=== PATIENT | female | born 1970 | race Caucasian/White ===

== ENCOUNTER 2023-04-14 23:02 | Emergency (ER) | payer MEDICAID, SELFPAY ==
[2023-04-14 23:10] VITALS: BP 184/95; PULSE 97; RESP 18; TEMP 37.2; O2SAT 98; BMI 32.4
--- NOTE | 2023-04-14 23:18 | CT_ITS ---
The [address] [address] Patient Name: HATTIE LANGE MRN: [id number] date: 1970 Sex: F Assigned Patient Location: ER Current Patient Location: .[facility] Accession/Order Number: [id number] Exam Date: 04/14/2023 23:38 Report Date: 04/15/2023 00:16 At the request of: FABIO SHARMA Procedure: CT abdomen pelvis wo con EXAM: CT abdomen pelvis wo con HISTORY: left flank pain, r/o stone COMPARISON: CT abdomen and pelvis examination dated 08/17/2022. TECHNIQUE: Noncontrast axial CT images through the abdomen and pelvis were obtained with coronal and sagittal reformats. Dose reduction techniques were achieved by using automated exposure control and/or adjustment of mA and/or kV according to patient size and/or use of iterative reconstruction technique. FINDINGS: The visualized portions of the lung bases are clear. Abdomen: Please note that the sensitivity for detection of focal lesions or vascular disease is markedly reduced without intravenous contrast. The liver and spleen are unremarkable. There is no intra or extrahepatic biliary duct dilatation. The gallbladder is unremarkable. There is a 1 mm nonobstructive left renal calculus. Otherwise, the pancreas, adrenal glands, kidneys, and bowel loops, including the appendix, are unremarkable. There is no mesenteric or retroperitoneal lymphadenopathy. There is a small fat-containing periumbilical hernia. Pelvis: The bladder and rectum are unremarkable. There is no iliac or inguinal lymphadenopathy. The patient is status post hysterectomy. There is moderate atherosclerotic disease. Bone windows show no aggressive osseous lesions. CT/CT abdomen pelvis wo con IMPRESSION: 1. Nonobstructive left renal calculus with no ureteral calculus seen. 2. Normal appendix. 3. Status post hysterectomy. Electronically authenticated by: Viji ZAPATA Date: 04/15/2023 00:16
--- NOTE | 2023-04-14 23:18 | ED.FEMALEGU1 ---
HPI - Female Genitourinary General Chief complaint: Abdominal Pain Stated complaint: Abdominal Pain Time Seen by Provider: 04/14/23 23:06 History of Present Illness HPI Narrative: 52-year-old female presents for left flank pain. It started a few hours ago when she was at work. There was no injury. She had a little bit of pain earlier in the day but went away. No dysuria or gross hematuria. No fever. It doesn't seem to radiate and she has a history of kidney stones. Related Data Previous Rx's Medication Instructions Recorded cyclobenzaprine 10 mg tablet 10 mg PO TID PRN muscle spasm #20 04/15/23 tabs ibuprofen 800 mg tablet 800 mg PO Q8H PRN pain #20 tabs 04/15/23 Allergies Allergy/AdvReac Type Severity Reaction Status Date / Time No Known Drug Allergies Allergy Verified 04/14/23 23:18 Review of Systems ROS Narrative A ten point review of systems is negative except as noted above. PFSH PFSH Social History Smoking status: Current every day smoker Exam Narrative Exam Narrative: Nurses note and vital signs reviewed and patient is not hypoxic. General: The patient appears uncomfortable and is moving around on the cart. Skin: Warm, dry, no pallor noted. There is no rash noted. Head: Normocephalic, atraumatic Eye: Normal conjunctiva, no drainage Ears, Nose, Mouth, and Throat: oral mucosa is moist. Nares patent. Cardiovascular: Regular Rate and Rhythm Respiratory: Patient is in no distress, no accessory muscle use, lungs are clear to auscultation, no wheezing, rales or rhonchi Back: non-tender, no CVA tenderness bilaterally to percussion. GI: soft and nontender, nondistended Musculoskeletal: The patient has no evidence of calf tenderness, no pitting edema, symmetrical pulses noted bilaterally Neurological: A&O, normal speech Psychiatric: Cooperative Constitutional Vital Signs, click to edit/add: Last Vital Signs Temp 98.9 F 04/14/23 23:10 Pulse 97 H 04/14/23 23:10 Resp 20 04/15/23 00:13 BP 125/66 04/15/23 00:13 Pulse Ox 100 04/15/23 00:13 O2 Del Method Room Air 04/15/23 00:13 Course Vital Signs Vital signs: Vital Signs Temperature 98.9 F 04/14/23 23:10 Pulse Rate 97 H 04/14/23 23:10 Respiratory Rate 18 04/14/23 23:10 Blood Pressure 184/95 H 04/14/23 23:10 Pulse Oximetry 98 04/14/23 23:10 Oxygen Delivery Method Room Air 04/14/23 23:10 Temperature 98.9 F 04/14/23 23:10 Pulse Rate 97 H 04/14/23 23:10 Respiratory Rate 20 04/15/23 00:13 Blood Pressure 125/66 04/15/23 00:13 Pulse Oximetry 100 04/15/23 00:13 Oxygen Delivery Method Room Air 04/15/23 00:13 MDM - Female Genitourinary MDM Narrative Medical decision making narrative: CT scan shows a 1 mm left renal stone without obstruction. There is no hydronephrosis or ureteral stones. I suspect that this may be muscular in nature. Respiratory Was negative as well. Findings were discussed thoroughly with the patient. Differential Diagnosis Differential diagnosis: Likely urinary tract infection and other (muscle strain, kidney stone) Lab Data Attestation: I reviewed the patient's lab results. Labs: Lab Results 04/14/23 Range/Units 23:22 WBC 11.0 (4.0-11.0) 10^3/uL RBC 4.68 (4.20-5.40) 10^6/uL Hgb 13.9 (12.0-16.0) g/dL Hct 41.5 (36.0-48.0) % MCV 88.7 (81.0-99.0) fL MCH 29.7 (26.7-34.0) pg MCHC 33.5 (29.9-35.2) g/dL RDW 12.5 (11.0-15.0) % Plt Count 297 (150-450) 10^3/uL MPV 9.2 L (9.5-13.5) fL Neut % (Auto) 47.4 (43.0-75.0) % Lymph % (Auto) 38.8 (20.5-60.0) % Bradley % (Auto) 10.3 (1.7-12.0) % Eos % (Auto) 2.4 (0.9-7.0) % Baso % (Auto) 0.8 (0.2-2.0) % Neut # (Auto) 5.2 (1.4-6.5) 10^3/uL Lymph # (Auto) 4.3 H (1.2-3.8) 10^3/uL Bradley # (Auto) 1.1 H (0.3-0.8) 10^3/uL Eos # (Auto) 0.3 (0.0-0.7) 10^3/uL Baso # (Auto) 0.1 (0.0-0.1) 10^3/uL Abs Immat Gran (auto) 0.03 (0.00-0.03) 10^3/uL Imm/Tot Granulo (auto) 0.3 (0.0-0.5) % Sodium 137 (136-145) mmol/L Potassium 3.8 (3.5-5.1) mmol/L Chloride 101 (98-107) mmol/L Carbon Dioxide 30.0 (21.0-32.0) mmol/L Anion Gap 9.8 BUN 17.0 (7.0-18.0) mg/dL Creatinine 1.01 (0.55-1.02) mg/dL Est GFR ( Amer) >60 (>=60) Est GFR (Non-Af Amer) 58 L (>=60) BUN/Creatinine Ratio 16.8 Glucose 110 H (74-106) mg/dL Calcium 9.2 (8.5-10.1) mg/dL Urine Color Yellow (YELLOW) Urine Clarity Clear (CLEAR) Urine pH 5.5 (5.0-9.0) Ur Specific [place] 1.020 (1.005-1.025) Urine Protein Negative (NEG/TRACE) mg/dL Urine Glucose (UA) Negative (NEGATIVE) mg/dL Urine Ketones Negative (NEGATIVE) mg/dL Urine Occult Blood Trace-i (NEGATIVE) Urine Nitrite Negative (NEGATIVE) Urine Bilirubin Negative (NEGATIVE) Urine Urobilinogen 0.2 (0.2-1.0) EU/dL Ur Leukocyte Esterase Negative (NEGATIVE) Urine RBC 0-2 (0-2) #/HPF Urine WBC 0-2 A (NONE SEEN) #/HPF Ur Squamous Epith Cells Rare (NONE/RARE) #/LPF Urine Crystals None seen (None Seen) #/HPF Urine Bacteria None seen (NONE SEEN) #/HPF Urine Casts None seen (NONE SEEN) #/LPF Urine Mucus None seen (NONE SEEN) Ur Culture Indicated? Already ordered Imaging Data CT scan - abdomen: Radiologist's impression: ITS Impressions Abdomen/Pelvis CT 04/14/23 23:18 IMPRESSION: 1. Nonobstructive left renal calculus with no ureteral calculus seen. 2. Normal appendix. 3. Status post hysterectomy. Electronically authenticated by: Viji ZAPATA Date: 04/15/2023 00:16 Discharge Plan Discharge Chief Complaint: Abdominal Pain Clinical Impression: Left flank pain Patient Disposition: Home, Self-Care Time of Disposition Decision: 00:36 Condition: Good Mode of Transportation: Private Vehicle Prescriptions / Home Meds: New cyclobenzaprine 10 mg tablet 10 mg PO TID PRN (Reason: muscle spasm) Qty: 20 0RF ibuprofen 800 mg tablet 800 mg PO Q8H PRN (Reason: pain) Qty: 20 0RF Instructions: Flank Pain (ED) Stand Alone Forms: Portal Instructions Referrals: Physician,Non-Staff, MD [Primary Care Provider] - 1 week
[2023-04-14 23:30] LABS: Basophils Absolute Auto 0.1 10^3/uL (0.0-0.1); Basophils Percent Auto 0.8 % (0.2-2.0); Eosinophils Absolute Auto 0.3 10^3/uL (0.0-0.7); Eosinophils Percent Auto 2.4 % (0.9-7.0); Hematocrit 41.5 % (36.0-48.0); Hemoglobin 13.9 g/dL (12.0-16.0); Immature Granulocytes Abs Auto 0.03 10^3/uL (0.00-0.03); Immature Granulocytes Pct Auto 0.3 % (0.0-0.5); Lymphocytes Absolute Auto 4.3 10^3/uL (1.2-3.8); Lymphocytes Percent Auto 38.8 % (20.5-60.0); Mean Corpuscular HGB Conc 33.5 g/dL (29.9-35.2); Mean Corpuscular Hemoglobin 29.7 pg (26.7-34.0); Mean Corpuscular Volume 88.7 fL (81.0-99.0); Mean Platelet Volume 9.2 fL (9.5-13.5); Monocytes Absolute Auto 1.1 10^3/uL (0.3-0.8); Monocytes Percent Auto 10.3 % (1.7-12.0); Neutrophils Absolute Auto 5.2 10^3/uL (1.4-6.5); Neutrophils Percent Auto 47.4 % (43.0-75.0); Platelet Count 297 10^3/uL (150-450); Red Blood Count 4.68 10^6/uL (4.20-5.40); Red Cell Distribution Width 12.5 % (11.0-15.0)
[2023-04-14 23:31] LABS: Bilirubin Urine NEGATIVE (NEGATIVE); Blood Urine TRACE-I (NEGATIVE); Clarity Urine CLEAR (CLEAR); Color Urine YELLOW (YELLOW); Glucose Urine UA NEGATIVE (NEGATIVE); Ketones Urine NEGATIVE (NEGATIVE); Leukocyte Esterase Urine NEGATIVE (NEGATIVE); Nitrite Urine NEGATIVE (NEGATIVE); Protein Urine NEGATIVE (NEG/TRACE); Urobilinogen Urine 0.2 EU/dL (0.2-1.0); pH Urine 5.5 (5.0-9.0)
[2023-04-14] MEDS: MORPHINE SULFATE 4 MG/ML VIAL IV (23:32)
[2023-04-14] MEDS: ONDANSETRON PF 4 MG/2 ML VIAL IV (23:32)
[2023-04-14 23:36] LABS: RBC Urine 0-2 #/HPF (0-2); WBC Urine 0-2 #/HPF (NONE SEEN)
[2023-04-14 23:37] LABS: Anion Gap 9.8; BUN Creatinine Ratio 16.8; Bacteria Urine NONE SEEN #/HPF (NONE SEEN); Calcium 9.2 mg/dL (8.5-10.1); Cast Seen? NONE SEEN #/LPF (NONE SEEN); Chloride 101 mmol/L (98-107); Crystals Seen? None Seen #/HPF (None Seen); Estimated GFR (African America >60 (>=60); Estimated GFR (Non-African Ame 58 (>=60); Glucose 110 mg/dL (74-106); Mucus Urine NONE SEEN (NONE SEEN); Potassium 3.8 mmol/L (3.5-5.1); Sodium 137 mmol/L (136-145); Squamous Epithelial Cell Urine RARE #/LPF (NONE/RARE); Urine Culture Indicated ALREADY ORDERED
[2023-04-15 00:13] VITALS: BP 125/66; RESP 20; O2SAT 100
[2023-04-15] MEDS: KETOROLAC TROMETHAMINE 30 MG/ML VIAL IVP (00:43)
== END 2023-04-15 00:49 | disposition home or self-care (01) ==
PROVIDERS: Emergency Provider Emergency Medicine
DX: R10.9 Unspecified abdominal pain (principal); F17.210 Nicotine dependence, cigarettes, uncomplicated
CPT/HCPCS: 36415; 74176; 80048; 81001; 85025; 87086; 87150; 87186; 96374; 96375; 99284; J1885; J2270; J2405

== ENCOUNTER 2024-04-02 19:10 | Emergency (ER) | payer MEDICAID, SELFPAY ==
[2024-04-02 19:14] VITALS: BP 154/85; PULSE 81; TEMP 36.5; O2SAT 100
[2024-04-02] MEDS: FLUORESCEIN SODIUM 1 MG STRIP OP (19:36)
--- NOTE | 2024-04-02 19:38 | ED_ITS ---
HPI - Eye Problem General Chief complaint: Eye Problems Stated complaint: left eye problems Time Seen by Provider: 04/02/24 19:21 Source: patient Mode of arrival: walk-in Limitations: no limitations History of Present Illness HPI Narrative: 53-year-old female presents for left eye redness and watery drainage. She woke up this way yesterday morning. There was no preceding foreign body or injury. She does not wear contacts. It continued today so she came in tonight. No symptoms in the right eye Related Data Previous Rx's ?Medication ?Instructions ?Recorded sulfacetamide sodium 10 % eye drops 2 drp ophthalmic (eye) Q4H #15 mL 04/02/24 Allergies Allergy/AdvReac Type Severity Reaction Status Date / Time No Known Drug Allergies Allergy Verified 04/02/24 19:18 Review of Systems ROS Narrative A ten point review of systems is negative except as noted above. PFSH PFSH Social History Smoking status: Current every day smoker Little interest or pleasure in doing things: not at all Feeling down, depressed, or hopeless: not at all Exam Narrative Exam Narrative: Nurses note and vital signs reviewed and patient is not hypoxic. General: The patient appears well and in no apparent distress. Patient is resting comfortably on cart. Skin: Warm, dry, no pallor noted. There is no rash noted. Head: Normocephalic, atraumatic Eye: Right conjunctiva is normal. Left is mildly injected. No foreign body can be found with lid eversion and examination. Fluorescein staining and Manley lamp examination show no corneal foreign body or corneal abrasions. Ears, Nose, Mouth, and Throat: oral mucosa is moist. Nares patent. Cardiovascular: Regular Rate and Rhythm Respiratory: Patient is in no distress, no accessory muscle use Back: non-tender GI: Soft and nontender Musculoskeletal: No joint swelling Neurological: A&O, normal speech Psychiatric: Cooperative Constitutional Vital Signs, click to edit/add: Last Vital Signs Temp 97.7 F 04/02/24 19:14 Pulse 81 04/02/24 19:14 Resp 18 04/02/24 19:14 BP 154/85 H 04/02/24 19:14 Pulse Ox 100 04/02/24 19:14 O2 Del Method Room Air 04/02/24 19:14 Course Vital Signs Vital signs: Vital Signs Temperature 97.7 F 04/02/24 19:14 Pulse Rate 81 04/02/24 19:14 Respiratory Rate 18 04/02/24 19:14 Blood Pressure 154/85 H 04/02/24 19:14 Pulse Oximetry 100 04/02/24 19:14 Oxygen Delivery Method Room Air 04/02/24 19:14 Temperature 97.7 F 04/02/24 19:14 Pulse Rate 81 04/02/24 19:14 Respiratory Rate 18 04/02/24 19:14 Blood Pressure 154/85 H 04/02/24 19:14 Pulse Oximetry 100 04/02/24 19:14 Oxygen Delivery Method Room Air 04/02/24 19:14 MDM - Eye Problem MDM Narrative Medical decision making narrative: No corneal foreign body or corneal abrasion is found. No foreign body on the conjunctiva or sclera either. The patient will be prescribed Bleph-10. My clinical impression is that she has conjunctivitis. Treatment diagnosis and follow-up were discussed with the patient. Differential Diagnosis Differential diagnosis: Likely corneal abrasion, conjunctivitis, subconjunctival hemorrhage and corneal ulcer Discharge Plan Discharge Chief Complaint: Eye Problems Clinical Impression: Acute conjunctivitis of left eye Patient Disposition: Home, Self-Care Time of Disposition Decision: 19:37 Condition: Good Mode of Transportation: Private Vehicle Prescriptions / Home Meds: New sulfacetamide sodium 10 % drops 2 drp ophthalmic (eye) Q4H Qty: 15 0RF Print Language: Luxembourgish Instructions: How to Use Eye Drops (ED), Conjunctivitis (ED) Referrals: Physician,Non-Staff, MD [Primary Care Provider] - 1 week
[2024-04-02 19:47] VITALS: O2SAT 100
== END 2024-04-02 19:47 | disposition home or self-care (01) ==
PROVIDERS: Emergency Provider Emergency Medicine
DX: H10.32 Unspecified acute conjunctivitis, left eye (principal)
CPT/HCPCS: 99283